=== PATIENT | female | born 1995 | race African-American/Black ===

== ENCOUNTER 2017-07-18 13:34 | Emergency (ER) | payer OTHER ==
[~2017-07-18] VITALS: Ht 167.6 cm; Wt 70.0 kg
[2017-07-18] MEDS ORDERED: IOHEXOL 350 MG/ML 10 ML VIAL (for RAD DIAG) IVCONTRAST ONE (13:35)
[2017-07-18 13:39] VITALS: BP 132/74; PULSE 120; RESP 17; TEMP 98.8; O2SAT 96
--- NOTE | 2017-07-18 14:15 | RADRPT ---
EXAM DATE: 07/18/2017 2:11 PM EDT AGE/SEX: 21 years / Female INDICATIONS: Right side chest pain, denies injury CLINICAL DATA: This is the patient's initial encounter. Patient reports that signs and symptoms have been present for 2 days and indicates a pain score of 8/10. MEDICAL/SURGICAL HISTORY: None. None. COMPARISON: No prior exams available for comparison. FINDINGS: PA and lateral views of the chest demonstrate a normal-sized cardiac silhouette. There is no effusion , consolidation, or pneumothorax. The bones and soft tissues demonstrate no acute abnormality. Nipple piercings are present. CONCLUSION: Normal chest x-ray. Electronically signed by: J Carlos Harris MD 07/18/2017 2:13 PM EDT
[2017-07-18] MEDS ORDERED: SODIUM CHLORID 0.9% 500 ML INJ 500 ML IV ONE (17:00)
[2017-07-18] MEDS ORDERED: KETOROLAC TROMETHAMINE 30 MG/ML (IVP) VIAL IV PUSH ONE (17:00)
[2017-07-18] MEDS ORDERED: SODIUM CHLORIDE 0.9% FLUSH 10 ML FLUSH IVF PRN (17:00)
--- NOTE | 2017-07-18 17:00 | PD ---
HPI Chief Complaint: Respiratory Symptoms Time Seen by Provider: 16:45 Travel History International Travel<30 days: No Contact w/Intl Traveler<30days: No Traveled to known affect area: No History of Present Illness HPI 21-year-old -French female presents emergency department with complaints of right upper abdominal/flank/chest pain which is been progressively worsening over the last 2 days. Patient states the pain is worse with deep breaths and with movement. Patient denies nausea, vomiting, diarrhea , or changes in her urine. She states no cough or wheezing. She denies using control or other meds. Pain is currently 8 out of 10. She states the pain radiates up from her right flank into her right shoulder, especially with deep breath. She has no known drug allergies. [facility] Social History Alcohol Use: No Tobacco Use: No Substance Use: No Allergies-Medications (Allergen,Severity, Reaction): Coded Allergies: No Known Allergies (Unverified , 07/18/17) Reported Meds & Prescriptions Reported Meds & Active Scripts Active No Active Prescriptions or Reported Medications Review of Systems Except as stated in HPI: all other systems reviewed are Neg General / Constitutional: No: Fever, Chills Eyes: No: Visual changes HENT: No: Headaches Cardiovascular: Positive: Chest Pain or Discomfort, Tachycardia Respiratory: Positive: Pleuritic Pain (See history of present), No: Cough, Shortness of Breath, Wheezing Gastrointestinal: No: Nausea, Vomiting, Diarrhea, Abdominal Pain Genitourinary: No: Dysuria Musculoskeletal: No: Pain Skin: No Rash Neurologic: No: Weakness Psychiatric: No: Depression Endocrine: No: Polydipsia Hematologic/Lymphatic: No: Easy Bruising Physical Exam Narrative GENERAL: Patient appears in mild distress. SKIN: Warm and dry. Normal color. Normal turgor. No rash. HEAD: Atraumatic. Normocephalic. EYES: Pupils equal and round. No scleral icterus. No injection or drainage. ENT: No nasal bleeding or discharge. Mucous membranes pink and moist. Pharynx is clear. Airways patent. NECK: Trachea midline. Supple and nontender CARDIOVASCULAR: Tachycardic rate and regular rhythm. RESPIRATORY: No accessory muscle use. Clear to auscultation. Breath sounds equal bilaterally. Patient has subjective pleuritic pain with deep breath on the right. GASTROINTESTINAL: Abdomen soft, non-tender, nondistended. Hepatic and splenic margins not palpable. Possible right CVA tenderness versus pleuritic pain MUSCULOSKELETAL: Extremities without clubbing, cyanosis, or edema. No obvious deformities. NEUROLOGICAL: Awake and alert. No obvious cranial nerve deficits. Motor grossly within normal limits. Five out of 5 muscle strength in the arms and legs. Normal speech. PSYCHIATRIC: Appropriate mood and affect; insight and judgment normal. Data Data Last Documented VS Vital Signs Date Time Temp Pulse Resp B/P (MAP) Pulse Ox O2 Delivery O2 Flow Rate FiO2 07/18/17 13:39 98.8 120 17 132/74 (93) 96 Orders Orders Chest, Pa & Lat (07/18/17 13:41) Complete Blood Count With Diff (07/18/17 16:51) Comprehensive Metabolic Panel (07/18/17 16:51) Magnesium (Mg) (07/18/17 16:51) Prothrombin Time / Inr (Pt) (07/18/17 16:51) Act Partial Throm Time (Ptt) (07/18/17 16:51) Ecg Monitoring (07/18/17 16:51) Bilateral Bp Monitoring (07/18/17 16:51) Iv Access Insert/Monitor (07/18/17 16:51) Oximetry (07/18/17 16:51) Oxygen Administration (07/18/17 16:51) Sodium Chloride 0.9% Flush (Ns Flush) (07/18/17 17:00) Sodium Chlorid 0.9% 500 Ml Inj (Ns 500 M (07/18/17 17:00) Ct Pulmonary Angiogram (07/18/17 16:51) Urinalysis - C+S If Indicated (07/18/17 16:51) Ed Urine Pregnancytest Poc (07/18/17 16:51) Ketorolac Inj (Toradol Inj) (07/18/17 17:00) Lipase (07/18/17 16:51) Urine Culture (07/18/17 17:30) Ceftriaxone Inj (Rocephin Inj) (07/18/17 18:15) Iohexol 350 Inj (Omnipaque 350 Inj) (07/18/17 13:35) Labs Laboratory Tests Test 07/18/17 17:30 White Blood Count 14.6 TH/MM3 Red Blood Count 4.70 MIL/MM3 Hemoglobin 13.4 GM/DL Hematocrit 38.0 % Mean Corpuscular Volume 81.0 FL Mean Corpuscular Hemoglobin 28.5 PG Mean Corpuscular Hemoglobin Concent 35.1 % Red Cell Distribution Width 13.7 % Platelet Count 266 TH/MM3 Mean Platelet Volume 8.9 FL Neutrophils (%) (Auto) 78.3 % Lymphocytes (%) (Auto) 15.5 % Monocytes (%) (Auto) 5.4 % Eosinophils (%) (Auto) 0.6 % Basophils (%) (Auto) 0.2 % Neutrophils # (Auto) 11.4 TH/MM3 Lymphocytes # (Auto) 2.3 TH/MM3 Monocytes # (Auto) 0.8 TH/MM3 Eosinophils # (Auto) 0.1 TH/MM3 Basophils # (Auto) 0.0 TH/MM3 CBC Comment DIFF FINAL Differential Comment Prothrombin Time 9.9 SEC Prothromb Time International Ratio 1.0 RATIO Activated Partial Thromboplast Time 28.4 SEC Urine Color YELLOW Urine Turbidity HAZY Urine pH 6.5 Urine Specific [place] 1.037 Urine Protein 30 mg/dL Urine Glucose (UA) NEG mg/dL Urine Ketones NEG mg/dL Urine Occult Blood NEG Urine Nitrite NEG Urine Bilirubin NEG Urine Urobilinogen 2.0 MG/DL Urine Leukocyte Esterase MOD Urine RBC LESS THAN 1 /hpf Urine WBC 7 /hpf Urine Squamous Epithelial Cells 3 /hpf Urine Bacteria MOD /hpf Urine Hyaline Casts 2 /lpf Urine Mucus MOD /lpf Microscopic Urinalysis Comment CULTURE INDICATED Blood Urea Nitrogen 9 MG/DL Creatinine 0.83 MG/DL Random Glucose 94 MG/DL Total Protein 9.0 GM/DL Albumin 4.0 GM/DL Calcium Level 9.6 MG/DL Magnesium Level 1.9 MG/DL Alkaline Phosphatase 77 U/L Aspartate Amino Transf (AST/SGOT) 15 U/L Alanine Aminotransferase (ALT/SGPT) 19 U/L Total Bilirubin 0.3 MG/DL Sodium Level 138 MEQ/L Potassium Level 4.0 MEQ/L Chloride Level 102 MEQ/L Carbon Dioxide Level 26.8 MEQ/L Anion Gap 9 MEQ/L Estimat Glomerular Filtration Rate 107 ML/MIN Lipase 94 U/L [facility] Medical Decision Making Medical Screen Exam Complete: Yes Emergency Medical Condition: Yes Differential Diagnosis Pleurisy. Pneumonia. PE. UTI. Pyelonephritis. Pancreatitis. Biliary colic. Narrative Course Chest x-ray performed in triage is unremarkable for acute process per Labs ordered including CBC, CMP, lipase, urinalysis, urine , and coagulation studies. IV access is obtained and she is given 30 mg ketorolac IV as well as 500 mL of normal saline bolus. CT pulmonary angiogram is ordered to rule out PE. CBC shows leukocytosis of 14.6. Coagulation studies are normal. Chemistries are unremarkable Urinalysis is suggestive of urinary tract infection with specific gravity 1.037 , 30 protein, moderate leukocyte esterase, 7 WBCs per high-power field, moderate bacteria, and moderate mucus. Urine culture was placed. Patient is given 1000 mg Rocephin IV. CTA is performed showing no PE. Patient will be treated for urinary tract infection/pyelonephritis with Macrodantin 100 mg twice daily for 10 days. Patient also given ibuprofen 800 mg 3 times daily with food #30. Patient should check on her urinary culture in 3 days to ensure proper antibiotic treatment. Patient is to rest, push fluids, follow-up if symptoms do not improve. Diagnosis Primary Impression: Urinary tract infection Qualified Codes: N30.00 - Acute cystitis without hematuria Additional Impression: Pyelonephritis Patient Instructions: Dysuria (ED), General Instructions Additional Instructions: CBC shows leukocytosis of 14.6. Coagulation studies are normal. Chemistries are unremarkable Urinalysis is suggestive of urinary tract infection with specific gravity 1.037 , 30 protein, moderate leukocyte esterase, 7 WBCs per high-power field, moderate bacteria, and moderate mucus. Urine culture was placed. Patient is given 1000 mg Rocephin IV. CTA is performed showing no PE. Patient will be treated for urinary tract infection/pyelonephritis with Macrodantin 100 mg twice daily for 10 days. Patient also given ibuprofen 800 mg 3 times daily with food #30. Patient should check on her urinary culture in 3 days to ensure proper antibiotic treatment. Patient is to rest, push fluids, follow-up if symptoms do not improve. Med/Other Pt SpecificInfo: Prescription(s) given Scripts No Active Prescriptions or Reported Meds Disposition: 01 DISCHARGE HOME Condition: Stable Saroj Chakraborty Jul 18, 2017 17:00
[2017-07-18 17:47] LABS: AUTOMATED NEUTROPHIL # 11.4 TH/MM3 (1.8-7.7); BASOPHIL % 0.2 % (0.0-2.0); EOSINOPHIL # 0.1 TH/MM3 (0-0.4); EOSINOPHIL % 0.6 % (0.0-4.0); HEMOGLOBIN 13.4 GM/DL (11.6-15.3); LYMPH % 15.5 % (9.0-44.0); LYMPHOCYTE # 2.3 TH/MM3 (1.0-4.8); MEAN CORPUSCULAR HEMOGLOBIN 28.5 PG (27.0-34.0); MEAN CORPUSCULAR HGB CONC 35.1 % (32.0-36.0); MEAN PLATELET VOLUME 8.9 FL (7.0-11.0); MONO % 5.4 % (0.0-8.0); MONOCYTE # 0.8 TH/MM3 (0-0.9); NEUT % 78.3 % (16.0-70.0); PLATELET COUNT 266 TH/MM3 (150-450); RED CELL DISTRIBUTION WIDTH 13.7 % (11.6-17.2); WHITE BLOOD COUNT 14.6 TH/MM3 (4.0-11.0)
[2017-07-18 17:55] LABS: PROTHROMBIN TIME - PATIENT 9.9 SEC (9.8-11.6)
[2017-07-18 18:03] LABS: BACTERIA, URINE MOD /hpf; BILIRUBIN, URINE NEG (NEG); BLOOD, URINE NEG (NEG); GLUCOSE,URINE NEG (NEG); HYALINE CAST, URINE 2 /lpf (RARE); KETONE, URINE NEG (NEG); MUCUS URINE MOD /lpf (OCC); NITRITE,URINE NEG (NEG); PH, URINE 6.5 (5.0-8.5); SQUAMOUS EPITHELIAL CELL URINE 3 /hpf (0-5); URINE COLOR YELLOW (YELLW/STRAW); URINE LEUKOCYTE ESTERASE MOD (NEG)
[2017-07-18 18:13] LABS: AST (GOT) 15 U/L (16-38); BICARBONATE 26.8 MEQ/L (21.0-32.0); BLOOD UREA NITROGEN 9 MG/DL (7-18); CALCIUM 9.6 MG/DL (8.5-10.1); CHLORIDE 102 MEQ/L (98-107); CREATININE 0.83 MG/DL (0.50-1.00); GLOMERULAR FILTRATION RATE 107 ML/MIN (>89); GLUCOSE,RANDOM 94 MG/DL (74-106); MAGNESIUM 1.9 MG/DL (1.5-2.5); SODIUM (NA) 138 MEQ/L (136-145)
[2017-07-18 18:14] LABS: ALT (GPT) 19 U/L (9-42)
[2017-07-18] MEDS ORDERED: cefTRIAXone INJ 1,000 MG in SODIUM CHLORIDE 0.9% INJ 100 ML IV ONE (18:15)
[2017-07-18 18:16] LABS: ALKALINE PHOSPHATASE 77 U/L (45-117); TOTAL BILIRUBIN ADULT 0.3 MG/DL (0.2-1.0)
--- NOTE | 2017-07-18 18:34 | RADRPT ---
EXAM DATE: 07/18/2017 6:20 PM EDT AGE/SEX: 21 years / Female INDICATIONS: Right sided pain, shortness of breath. CLINICAL DATA: This is the patient's initial encounter. Patient reports that signs and symptoms have been present for 1 day and indicates a pain score of 8/10. MEDICAL/SURGICAL HISTORY: None. None. RADIATION DOSE: 6.75 CTDI (mGy) COMPARISON: No prior exams available for comparison. TECHNIQUE: Volumetric scanning was performed using a multi-row detector CT scanner during bolus infu juan carlos of 60 ml Omnipaque 350 (iohexol) nonionic water-soluble contrast as a single exam dose. The rafa a was post processed with a variety of visualization algorithms including full volume maximum intensi ty projection and sliding thin slab reformation. Using automated exposure control and adjustment of the mA and/or kV according to patient size, radiation dose was kept as low as reasonably achievable t o obtain optimal diagnostic quality images. FINDINGS: Pulmonary Arteries: No filling defects are seen in the pulmonary arteries out to the subsegmental ve ssels. The left and right pulmonary arteries are normal in diameter. Lung: Lungs are clear without consolidation or pneumothorax. No concerning pulmonary nodule is visua lized. Effusion: There is trace right pleural fluid. Mediastinum: Heart and great vessels demonstrate no acute finding. No lymphadenopathy is present. Th ere are nonenlarged calcified lymph nodes in the right mediastinum. Other: Visualized upper abdominal structures and bones demonstrate no acute finding. Residual thymic tissue is present in the anterior mediastinum. CONCLUSION: 1. No PE is identified. 2. Trace right pleural effusion. Electronically signed by: J Carlos Harris MD 07/18/2017 6:33 PM EDT
[2017-07-18] MEDS ORDERED: IBUP1TAB7 PO (18:41)
[2017-07-18] MEDS ORDERED: MACR100C3 PO (18:41)
== END 2017-07-18 19:09 | disposition home or self-care (01) ==
LOC: NEPD 13:34
DX: N39.0 Urinary tract infection, site not specified (principal); N12 Tubulo-interstitial nephritis, not specified as acute or chronic; D72.829 Elevated white blood cell count, unspecified; R07.9 Chest pain, unspecified
CPT/HCPCS: 71046; 71275; 80053; 81001; 83690; 83735; 84703; 85025; 85610; 85730; 87086; 96361; 96365; 96372; 99285; J0696; J1885; J7040; Q9967